=== PATIENT | female | born 1960 | race Caucasian/White ===

== ENCOUNTER 2023-12-08 08:57 | Outpatient (CLI) | payer OTHER, MEDICARE, SELFPAY ==
--- NOTE | ~2023-12-08 | XR_ITS ---
Right Knee Technique: AP, lateral, and sunrise views were obtained. Clinical History: Osteoarthritis Findings: No fracture or dislocation is seen. Osseous alignment is anatomic. Mild tricompartmental os teoarthritis present. Soft tissues are unremarkable. No joint effusion is seen. Impression: . Mild tricompartmental osteoarthritis. Reviewed, dictated and finalized at location . Impression: . Mild tricompartmental osteoarthritis.
--- NOTE | ~2023-12-08 | XR_ITS ---
Left Knee Technique: AP, lateral, and sunrise views were obtained. Clinical History: Osteoarthritis Findings: No fracture or dislocation is seen. Osseous alignment is anatomic. There is minimal degener ative spurring at the medial joint line and patella. Soft tissues are unremarkable. No joint effusion is seen. Impression: . Minimal degenerative spurring, as above. Reviewed, dictated and finalized at location . Impression: . Minimal degenerative spurring, as above.
== END 2023-12-08 08:58 | disposition home or self-care (01) ==
PROVIDERS: PCP Hospitalist; Visit Provider Orthopaedic Surgery
DX: M17.0 Bilateral primary osteoarthritis of knee (principal)
CPT/HCPCS: 73564